=== PATIENT | male | born 1980 | race Caucasian/White ===

== ENCOUNTER 2016-08-26 02:05 | Emergency (ER) | payer MEDICAID ==
[~2016-08-26] VITALS: Ht 185.4 cm; Wt 86.2 kg
--- NOTE | 2016-08-26 02:05 | NUR ---
BIB [facility] TO [facility]
[2016-08-26 02:14] VITALS: BP 134/90
--- NOTE | 2016-08-26 02:22 | NUR ---
Patient being evaluated by physician.
[2016-08-26 02:30] VITALS: BP 134/90
--- NOTE | 2016-08-26 02:30 | NUR ---
Patient discharged with v/s stable. Written and verbal after care instructions given and explained. Patient verbalized understanding. Police with in custody. All questions addressed prior to discharge. Advised to follow up with PMD.
== END 2016-08-26 02:30 ==
LOC: MED 02:05
DX: Z02.89 Encounter for other administrative examinations (principal)
CPT/HCPCS: 99283